=== PATIENT | female | born 1990 | race Caucasian/White ===

== ENCOUNTER → 2025-02-02 08:43 | Outpatient (REF) | payer OTHER, SELFPAY | LOC: DHSLP 08:43 | PROVIDERS: ATTENDING PHYSICIAN Student in an Organized Health Care Education/Training Program; FAMILY PHYSICIAN Internal Medicine | DX: G47.10 Hypersomnia, unspecified (principal); R06.83 Snoring | CPT/HCPCS: 95810 ==

== ENCOUNTER → 2025-02-03 11:26 | Outpatient (REF) | payer OTHER, SELFPAY | LOC: DHSLP 11:26 | PROVIDERS: ATTENDING PHYSICIAN Student in an Organized Health Care Education/Training Program; FAMILY PHYSICIAN Internal Medicine | DX: G47.11 Idiopathic hypersomnia with long sleep time (principal) | CPT/HCPCS: 95805 ==